=== PATIENT | female | born 1950 | race Caucasian/White ===

== ENCOUNTER 2017-04-07 11:33 | Day surgery (SDC) | payer OTHER ==
[~2017-04-07] VITALS: Ht 170.2 cm; Wt 74.4 kg
[~2017-04-07 11:33] MED LIST: CALCIUM 500 MG1 EACH PO; LEVOTHYROXINE150 MCG PO; MULTIVITAMIN1 EAC2 PO; PLAQUENIL200 MG PO; PROLIA60 MG/1 ML SC; VITAMIN D31000 UNI2 PO
== END 2017-04-07 17:35 | disposition home or self-care (01) ==
LOC: CATH 11:33
DX: R07.9 Chest pain, unspecified (principal); I73.9 Peripheral vascular disease, unspecified; M06.9 Rheumatoid arthritis, unspecified; Z88.2 Allergy status to sulfonamides; Z88.0 Allergy status to penicillin
CPT/HCPCS: C1769; C1887; J1644; J2250; J3010